=== PATIENT | female | born 1945 | race African-American/Black ===

== ENCOUNTER → 2016-09-17 | Outpatient (CLI) | payer MEDICARE, MEDICAID ==
--- NOTE | 2016-09-17 17:45 | REP ---
Pelvic sonography: History: Question left ovarian cyst. The patient status-post hysterectomy and right and left oophorectomy. Comparison sonography: 10/03/2014 from [facility] showed a 4 cm cystic structure lateral to the bladder in the left pelvis. Findings: Transabdominal and transvaginal scanning are performed. There is a cystic structure in the left adnexa again seen measuring 4.0 x 4.8 x 3.9 cm. Lateral to this is a complex area measuring 3.6 x 3.0 x 1.6 cm. There are small follicle type cystic areas within this complex area. The 4.8 cm area appears sonographically to be a simple cystic structure. CT study of the abdomen and pelvis from 10/16/2014 showed similar findings. Impression: 4.8 cm simple cyst and 3.6 cm complex area suggesting residual or recurrent ovary in the left adnexa. No significant change a change from 10/16/2014 CT findings Signed by Narendra Thompson MD 09/18/2016 08:04 A
== END | disposition home or self-care (01) ==
LOC: M LRY 13:38
PROVIDERS: ATTEND Physician Assistant
DX: N83.202 Unspecified ovarian cyst, left side (principal); Z90.710 Acquired absence of both cervix and uterus

== ENCOUNTER → 2017-02-02 | Outpatient (CLI) | payer MEDICARE, MEDICAID ==
[~2017-02-02] VITALS: Ht 160 cm; Wt 106.1 kg
[~2017-02-02] MED LIST: ALLO100T PO; AMLO2.5T PO; BENZ100C5 PO; CETI10TA PO; EZET10TA PO; FLUT1LOT; FURO20TA2 PO; IPRASOL4 INH; LIDOCAINE 2% INJ 100 MG/5 ML SDV (FOR ANES.) As Ordered ONE; LIPI80TA PO; MONT10TA2 PO; NS 500 ML IV SCH; PATA0.2S OU; PHENYLephrine HCL 500 MCG/5 ML (100MCG/ML) SYRINGE (J2370) As Ordered ONE; POLYPOW9 PO; POTA10TA16 PO; PROPOFOL 500 MG/50 ML VIAL As Ordered ONE; SYMB16INH INH
--- NOTE | 2017-02-02 07:46 | ROOR ---
Patient Name: Peace Garrison Procedure Date: 02/02/2017 7:31 AM Date of : 1945 Age: 71 Room: [facility] Gender: Female Note Status: Finalized Procedure: Upper GI endoscopy Indications: Surveillance procedure, Heartburn Providers: Kamaljit YOUSSEF MD Referring MD: KINGSTON Pike Requesting Provider: Medicines: Monitored Anesthesia Care Complications: No immediate complications. Procedure: Pre-Anesthesia Assessment: - The heart rate, respiratory rate, oxygen saturations, blood pressure, adequacy of pulmonary ventilation, and response to care were monitored throughout the procedure. The Endoscope was introduced through the mouth, and advanced to the second part of duodenum. The upper GI endoscopy was accomplished without difficulty. The patient tolerated the procedure well. Findings: The examined esophagus was normal. A single small submucosal papule (nodule) was found in the gastric body. Biopsies were taken with a cold forceps for histology. The exam was otherwise without abnormality. The examined duodenum was normal. Impression: - Normal esophagus. - A single umbillicated submucosal papule (nodule) found in the stomach (unchanged from previous exam in 2014). Biopsied. - The examination was otherwise normal. - Normal examined duodenum. Recommendation: - Observe patient's clinical course. - Await pathology results. Kamaljit Youssef MD Kamaljit YOUSSEF MD 02/02/2017 7:46:39 AM This report has been signed electronically. Number of Addenda: 0 Note Initiated On: 02/02/2017 7:31 AM Estimated Blood Loss: Estimated blood loss: none.
--- NOTE | 2017-02-02 07:58 | ROOR ---
Patient Name: Peace Garrison Procedure Date: 02/02/2017 7:31 AM Date of : 1945 Age: 71 Room: [facility] Gender: Female Note Status: Finalized Procedure: Colonoscopy Indications: High risk colon cancer surveillance: Personal history of colonic polyps, Last colonoscopy: January 2015 Providers: Kamaljit YOUSSEF MD Referring MD: KINGSTON Pike Requesting Provider: Medicines: Monitored Anesthesia Care Complications: No immediate complications. Procedure: Pre-Anesthesia Assessment: - The heart rate, respiratory rate, oxygen saturations, blood pressure, adequacy of pulmonary ventilation, and response to care were monitored throughout the procedure. The Colonoscope was introduced through the anus and advanced to the cecum, identified by appendiceal orifice and ileocecal valve. The colonoscopy was performed without difficulty. The patient tolerated the procedure well. The quality of the bowel preparation was good. Findings: The perianal and digital rectal examinations were normal. A 4 mm polyp was found in the ascending colon. The polyp was sessile. The polyp was removed with a cold snare. Resection and retrieval were complete. Internal hemorrhoids were found during retroflexion. The hemorrhoids were moderate. The exam was otherwise without abnormality on direct and retroflexion views. Impression: - One 4 mm polyp in the ascending colon, removed with a cold snare. Resected and retrieved. - Internal hemorrhoids. - The examination was otherwise normal on direct and retroflexion views. Recommendation: - Repeat colonoscopy in 5 years for surveillance. Kamaljit Youssef MD Kamaljit YOUSSEF MD 02/02/2017 7:58:18 AM This report has been signed electronically. Number of Addenda: 0 Note Initiated On: 02/02/2017 7:31 AM Estimated Blood Loss: Estimated blood loss: none.
[2017-02-02 08:20] VITALS: BP 131/82
== END | disposition home or self-care (01) ==
LOC: M OPP 06:21
PROVIDERS: ATTEND Internal Medicine Gastroenterology
DX: Z12.11 Encounter for screening for malignant neoplasm of colon (principal); D12.2 Benign neoplasm of ascending colon; K64.8 Other hemorrhoids; Z86.010 Personal history of colon polyps; R12 Heartburn; K31.89 Other diseases of stomach and duodenum; I10 Essential (primary) hypertension; E78.5 Hyperlipidemia, unspecified; M10.9 Gout, unspecified; R07.89 Other chest pain; R06.02 Shortness of breath; M19.90 Unspecified osteoarthritis, unspecified site; J45.909 Unspecified asthma, uncomplicated; Z78.0 Asymptomatic menopausal state; J44.9 Chronic obstructive pulmonary disease, unspecified; G47.8 Other sleep disorders; G47.30 Sleep apnea, unspecified; R06.83 Snoring; Z88.0 Allergy status to penicillin; Z88.8 Allergy status to other drugs, medicaments and biological substances; Z79.899 Other long term (current) drug therapy
CPT/HCPCS: 43239; 45385; 88305; J2370

== ENCOUNTER → 2017-02-25 | Outpatient (CLI) | payer MEDICARE, MEDICAID ==
[~2017-02-25] MED LIST changes: -LIDOCAINE 2% INJ 100 MG/5 ML SDV (FOR ANES.) As Ordered ONE; -NS 500 ML IV SCH; -PHENYLephrine HCL 500 MCG/5 ML (100MCG/ML) SYRINGE (J2370) As Ordered ONE; -PROPOFOL 500 MG/50 ML VIAL As Ordered ONE
--- NOTE | 2017-02-25 13:15 | REP ---
PA and lateral chest: Comparisons are the PA and lateral plain film studies dated 01/07/2069, 12/11/2014. There is also a comparison chest CT dated 07/26/2016. There is chronic interstitial coarsening bilaterally, unchanged from all prior studies, compatible with fibrosis and chronic lung disease. There is cardiomegaly, unchanged. There are no acute infiltrates or effusions. No masses. The joselito, mediastinum, and bony thorax are unchanged. Impression: Chronic interstitial coarsening and chronic cardiomegaly. No new or acute cardiopulmonary findings. Signed by Tony aCrmichael MD 02/25/2017 01:06 P
== END ==
LOC: M LRY 09:34
PROVIDERS: ATTEND Physician Assistant
DX: R91.8 Other nonspecific abnormal finding of lung field (principal); I51.7 Cardiomegaly

== ENCOUNTER → 2017-02-25 | Outpatient (REF) | payer MEDICARE, MEDICAID ==
[2017-02-25 13:25] LABS: MEAN CORPUSCULAR HEMOGLOBIN 29.6 pg (27.0-33.0); MEAN CORPUSCULAR HGB CONC 31.3 g/dl (32.0-36.5); MEAN CORPUSCULAR VOLUME 94.4 fl (80.0-96.0); RED CELL DISTRIBUTION WIDTH 14.8 % (11.5-14.5); WHITE BLOOD COUNT 9.3 K/mm3 (4.0-10.0)
[2017-02-25 14:22] LABS: ALBUMIN 3.8 GM/DL (3.2-5.2); ALKALINE PHOSPHATASE 93 U/L (45-117); ALT/SGPT 27 U/L (12-78); ANION GAP 8 MEQ/L (8-16); AST/SGOT 29 U/L (15-37); BILIRUBIN,TOTAL 0.3 MG/DL (0.2-1.0); BLOOD UREA NITROGEN 21 MG/DL (7-18); CALCIUM LEVEL 9.3 MG/DL (8.8-10.2); CARBON DIOXIDE LEVEL 28 MEQ/L (21-32); CHLORIDE LEVEL 106 MEQ/L (98-107); CHOLESTEROL LEVEL 228 MG/DL (<200); CREATININE FOR GFR 0.85 MG/DL (0.55-1.02); FERRITIN 401 NG/ML (8-252); GLOMERULAR FILTRATION RATE > 60.0 (>39); GLUCOSE, FASTING 101 MG/DL (83-110); POTASSIUM SERUM 4.2 MEQ/L (3.5-5.1); SODIUM LEVEL 142 MEQ/L (136-145); TRIGLYCERIDES LEVEL 58 MG/DL (<150); URIC ACID 4.3 MG/DL (2.6-6.0)
== END ==
LOC: M SFHCLERA 09:48
PROVIDERS: ATTEND Physician Assistant
DX: I10 Essential (primary) hypertension (principal); E78.2 Mixed hyperlipidemia; D64.9 Anemia, unspecified; R06.09 Other forms of dyspnea; E79.0 Hyperuricemia without signs of inflammatory arthritis and tophaceous disease

== ENCOUNTER → 2017-08-11 | Outpatient (REF) | payer MEDICARE, MEDICAID ==
[2017-08-11 12:18] LABS: ALBUMIN 3.8 GM/DL (3.2-5.2); ALBUMIN/GLOBULIN RATIO 0.95 (1.00-1.93); ALKALINE PHOSPHATASE 87 U/L (45-117); ALT/SGPT 28 U/L (12-78); ANION GAP 8 MEQ/L (8-16); AST/SGOT 34 U/L (7-37); BILIRUBIN,TOTAL 0.5 MG/DL (0.2-1.0); BLOOD UREA NITROGEN 13 MG/DL (7-18); CALCIUM LEVEL 9.7 MG/DL (8.8-10.2); CARBON DIOXIDE LEVEL 29 MEQ/L (21-32); CHLORIDE LEVEL 107 MEQ/L (98-107); CHOLESTEROL LEVEL 212 MG/DL (<200); CREATININE FOR GFR 0.72 MG/DL (0.55-1.02); GLOMERULAR FILTRATION RATE > 60.0 (>39); GLUCOSE, FASTING 86 MG/DL (83-110); POTASSIUM SERUM 4.2 MEQ/L (3.5-5.1); SODIUM LEVEL 144 MEQ/L (136-145); TOTAL PROTEIN 7.8 GM/DL (6.4-8.2); TRIGLYCERIDES LEVEL 53 MG/DL (<150); URIC ACID 3.8 MG/DL (2.6-6.0)
== END ==
LOC: M SFHCLERA 09:31
PROVIDERS: ATTEND Physician Assistant
DX: I10 Essential (primary) hypertension (principal); E78.2 Mixed hyperlipidemia; E79.0 Hyperuricemia without signs of inflammatory arthritis and tophaceous disease

== ENCOUNTER → 2017-08-11 | Outpatient (CLI) | payer MEDICARE, MEDICAID | LOC: M LRY 09:17 | PROVIDERS: ATTEND Physician Assistant | DX: I10 Essential (primary) hypertension (principal); E78.2 Mixed hyperlipidemia; E79.0 Hyperuricemia without signs of inflammatory arthritis and tophaceous disease ==

== ENCOUNTER → 2017-09-01 | Outpatient (REF) | payer MEDICARE, MEDICAID | LOC: M SFHCLERA 10:31 | PROVIDERS: ATTEND Family Medicine | DX: I10 Essential (primary) hypertension (principal); E66.01 Morbid (severe) obesity due to excess calories; Z68.42 Body mass index [BMI] 45.0-49.9, adult; R73.09 Other abnormal glucose ==

== ENCOUNTER → 2017-11-26 | Outpatient (REF) | payer MEDICARE | LOC: M LAB REF 13:18 | DX: J47.9 Bronchiectasis, uncomplicated (principal) | CPT/HCPCS: 87205 ==

== ENCOUNTER → 2018-02-09 | Outpatient (REF) | payer MEDICARE ==
[2018-02-09 11:16] LABS: HEMOGLOBIN 12.1 g/dl (12.0-15.5); MEAN CORPUSCULAR HEMOGLOBIN 28.9 pg (27.0-33.0); MEAN CORPUSCULAR HGB CONC 31.8 g/dl (32.0-36.5); MEAN CORPUSCULAR VOLUME 90.9 fl (80.0-96.0); PLATELET COUNT, AUTOMATED 188 10^3/uL (150-450); RED BLOOD COUNT 4.18 10^6/uL (4.00-5.40); RED CELL DISTRIBUTION WIDTH 15.2 % (11.5-14.5); WHITE BLOOD COUNT 6.6 10^3/uL (4.0-10.0)
[2018-02-09 11:32] LABS: ALBUMIN 3.7 GM/DL (3.2-5.2); ALKALINE PHOSPHATASE 91 U/L (45-117); ALT/SGPT 37 U/L (12-78); ANION GAP 7 MEQ/L (8-16); AST/SGOT 45 U/L (7-37); BILIRUBIN,TOTAL 0.4 MG/DL (0.2-1.0); BLOOD UREA NITROGEN 16 MG/DL (7-18); CALCIUM LEVEL 9.3 MG/DL (8.8-10.2); CARBON DIOXIDE LEVEL 29 MEQ/L (21-32); CHLORIDE LEVEL 107 MEQ/L (98-107); CHOLESTEROL LEVEL 200 MG/DL (<200); CHOLESTEROL RISK RATIO 2.666 (<5); CREATININE FOR GFR 0.71 MG/DL (0.55-1.30); GLOMERULAR FILTRATION RATE > 60.0 (>39); GLUCOSE, FASTING 87 MG/DL (70-100); HDL CHOLESTEROL 75 MG/DL (>40); NON-HDL-C 125 MG/DL; POTASSIUM SERUM 3.8 MEQ/L (3.5-5.1); SODIUM LEVEL 143 MEQ/L (136-145); TOTAL PROTEIN 7.8 GM/DL (6.4-8.2); TRIGLYCERIDES LEVEL 55 MG/DL (<150); URIC ACID 2.9 MG/DL (2.6-6.0)
[2018-02-09 11:37] LABS: ESTIMATED AVERAGE GLUCOSE 114 MG/DL (60-110); HEMOGLOBIN A1c 5.6 %
== END ==
LOC: M SFHCLERA 09:35
DX: I10 Essential (primary) hypertension (principal); E78.2 Mixed hyperlipidemia; E79.0 Hyperuricemia without signs of inflammatory arthritis and tophaceous disease; R73.01 Impaired fasting glucose
CPT/HCPCS: 84550

== ENCOUNTER → 2018-04-06 | Outpatient (REF) | payer MEDICARE ==
[2018-04-06 13:31] LABS: D-DIMER QUANT 1170.6 ng/ml (<500)
== END ==
LOC: M LAB REF 13:00
DX: R09.02 Hypoxemia (principal)
CPT/HCPCS: 85379

== ENCOUNTER → 2018-06-20 | Outpatient (REF) | payer MEDICARE ==
[2018-06-20 13:19] LABS: BASO % 0.5 % (0.0-1.0); EOS # 0.5 10^3/uL (0.0-0.50); EOS % 8.1 % (0.0-3.0); HEMATOCRIT 35.9 % (36.0-47.0); HEMOGLOBIN 11.3 g/dl (12.0-15.5); IMMATURE GRANULOCYTE % 0.2 % (0-3.0); LYMPH # 1.6 10^3/uL (1.5-4.5); LYMPH % 26.4 % (24.0-44.0); MEAN CORPUSCULAR HEMOGLOBIN 28.7 pg (27.0-33.0); MEAN CORPUSCULAR HGB CONC 31.5 g/dl (32.0-36.5); MEAN CORPUSCULAR VOLUME 91.1 fl (80.0-96.0); MONO # 0.5 10^3/uL (0.0-0.8); MONO % 8.7 % (0.0-5.0); NEUTROPHILS # 3.4 10^3/uL (1.8-7.7); NEUTROPHILS % 56.1 % (36.0-66.0); PLATELET COUNT, AUTOMATED 197 10^3/uL (150-450); RED BLOOD COUNT 3.94 10^6/uL (4.00-5.40); RED CELL DISTRIBUTION WIDTH 16.2 % (11.5-14.5); WHITE BLOOD COUNT 6.1 10^3/uL (4.0-10.0)
[2018-06-20 13:47] LABS: CREATININE, URINE 93.1 MG/DL; MALB URINE SIEMENS 41.8 MG/L
[2018-06-20 13:50] LABS: MAU/CREAT RATIO 44.9 MCG/MG (0.0-30.0)
[2018-06-20 13:51] LABS: ESTIMATED AVERAGE GLUCOSE 114 MG/DL (60-110); HEMOGLOBIN A1c 5.6 %
[2018-06-20 14:01] LABS: ALBUMIN 3.4 GM/DL (3.2-5.2); ALBUMIN/GLOBULIN RATIO 0.87 (1.00-1.93); ALKALINE PHOSPHATASE 76 U/L (45-117); ALT/SGPT 33 U/L (12-78); ANION GAP 11 MEQ/L (8-16); AST/SGOT 42 U/L (7-37); BILIRUBIN,TOTAL 0.5 MG/DL (0.2-1.0); BLOOD UREA NITROGEN 18 MG/DL (7-18); CARBON DIOXIDE LEVEL 28 MEQ/L (21-32); CHLORIDE LEVEL 106 MEQ/L (98-107); CHOLESTEROL LEVEL 178 MG/DL (<200); CHOLESTEROL RISK RATIO 2.918 (<5); CPK CREATINE PHOSPHOKINASE 575 U/L (26-192); CREATININE FOR GFR 0.77 MG/DL (0.55-1.30); GLOMERULAR FILTRATION RATE > 60.0 (>39); GLUCOSE, FASTING 79 MG/DL (70-100); HDL CHOLESTEROL 61 MG/DL (>40); LDL CHOLESTEROL 106 MG/DL (<100); MAGNESIUM LEVEL 2.2 MG/DL (1.8-2.4); MB/CK RELATIVE INDEX 0.99 (< OR =4); NON-HDL-C 117 MG/DL; POTASSIUM SERUM 3.4 MEQ/L (3.5-5.1); SODIUM LEVEL 145 MEQ/L (136-145); TOTAL PROTEIN 7.3 GM/DL (6.4-8.2); TRIGLYCERIDES LEVEL 53 MG/DL (<150)
[2018-06-22 15:03] LABS: INSULIN LEVEL 9.9 uIU/mL (2.6-24.9)
== END ==
LOC: M SFHCPLAZ 08:05
DX: I10 Essential (primary) hypertension (principal); E78.2 Mixed hyperlipidemia; R73.01 Impaired fasting glucose
CPT/HCPCS: 83525

== ENCOUNTER → 2018-06-28 | Outpatient (REF) | payer MEDICARE ==
[2018-06-28 19:30] LABS: CPK CREATINE PHOSPHOKINASE 504 U/L (26-192); MB/CK RELATIVE INDEX 1.05 (< OR =4)
== END ==
LOC: M SFHCPLAZ 09:28
DX: E78.2 Mixed hyperlipidemia (principal); Z23 Encounter for immunization
CPT/HCPCS: 82553

== ENCOUNTER → 2018-09-16 | Outpatient (CLI) | payer MEDICARE ==
[~2018-09-16] MED LIST changes: -AMLO2.5T PO; +AMLO2.5T3 PO; +BENZ-18 PO; -BENZ100C5 PO; +IPRA0.00 INH; -IPRASOL4 INH
--- NOTE | 2018-09-16 13:44 | REP ---
CHEST X-RAY: Two views. HISTORY: Cough for 1 month. Evaluate for pneumonia. COMPARISON STUDY: February 25, 2017 and January 08, 2016. FINDINGS: A chronic interstitial fibrosis pattern is again seen rather advanced. This generally a little more prominent in the right lung than the left and this pattern is unchanged. There is no evidence of superimposed infiltrate. The aorta is calcific and tortuous. Heart size is near the upper range of normal. No pleural effusion is seen. IMPRESSION: Marked diffuse interstitial fibrosis pattern again noted. No superimposed infiltrate seen. Electronically Signed by Narendra Thompson MD 09/16/2018 03:15 P
== END ==
LOC: M LRY 12:32
PROVIDERS: ATTEND Nurse Practitioner Family
DX: J98.8 Other specified respiratory disorders (principal); R05 Cough
CPT/HCPCS: 71046; 94640; G0463

== ENCOUNTER → 2018-10-31 | Outpatient (REF) | payer MEDICARE ==
[2018-10-31 10:54] LABS: BASO % 0.6 % (0.0-1.0); EOS # 0.4 10^3/uL (0.0-0.50); EOS % 6.6 % (0.0-3.0); HEMATOCRIT 37.6 % (36.0-47.0); LYMPH # 1.6 10^3/uL (1.5-4.5); LYMPH % 25.2 % (24.0-44.0); MEAN CORPUSCULAR HEMOGLOBIN 29.4 pg (27.0-33.0); MEAN CORPUSCULAR HGB CONC 31.9 g/dl (32.0-36.5); MEAN CORPUSCULAR VOLUME 92.2 fl (80.0-96.0); MONO # 0.7 10^3/uL (0.0-0.8); MONO % 11.4 % (0.0-5.0); NEUTROPHILS # 3.5 10^3/uL (1.8-7.7); PLATELET COUNT, AUTOMATED 191 10^3/uL (150-450); RED BLOOD COUNT 4.08 10^6/uL (4.00-5.40); WHITE BLOOD COUNT 6.2 10^3/uL (4.0-10.0)
[2018-10-31 11:08] LABS: ALBUMIN 3.5 GM/DL (3.2-5.2); ALT/SGPT 31 U/L (12-78); BILIRUBIN,TOTAL 0.4 MG/DL (0.2-1.0); BLOOD UREA NITROGEN 24 MG/DL (7-18); CALCIUM LEVEL 9.2 MG/DL (8.8-10.2); CARBON DIOXIDE LEVEL 30 MEQ/L (21-32); CHLORIDE LEVEL 106 MEQ/L (98-107); CHOLESTEROL LEVEL 238 MG/DL (<200); CPK CREATINE PHOSPHOKINASE 405 U/L (26-192); CREATININE FOR GFR 0.79 MG/DL (0.55-1.30); GLOMERULAR FILTRATION RATE > 60.0 (>39); GLUCOSE, FASTING 82 MG/DL (70-100); HDL CHOLESTEROL 77 MG/DL (>40); LDL CHOLESTEROL 154 MG/DL (<100); MAGNESIUM LEVEL 2.2 MG/DL (1.8-2.4); MB/CK RELATIVE INDEX 0.99 (< OR =4); NON-HDL-C 161 MG/DL; POTASSIUM SERUM 3.6 MEQ/L (3.5-5.1); SODIUM LEVEL 143 MEQ/L (136-145); TOTAL PROTEIN 7.3 GM/DL (6.4-8.2); TRIGLYCERIDES LEVEL 35 MG/DL (<150)
[2018-10-31 11:16] LABS: HEMOGLOBIN A1c 5.5 %
[2018-10-31 11:42] LABS: TOTAL 25(OH) VITAMIN D 31.6 NG/ML (30.0-100.0)
[2018-10-31 11:43] LABS: PTH INTACT 105.7 PG/ML (18.5-88.0)
== END ==
LOC: M SFHCPLAZ 07:49
PROVIDERS: ATTEND Nurse Practitioner Family
DX: I10 Essential (primary) hypertension (principal); E78.2 Mixed hyperlipidemia; R73.01 Impaired fasting glucose; E55.9 Vitamin D deficiency, unspecified; M10.9 Gout, unspecified

== ENCOUNTER → 2020-01-04 | Outpatient (REF) | payer MEDICARE ==
[~2020-01-04] MED LIST changes: -EZET10TA PO; +EZET10TA21 PO; -MONT10TA2 PO; +MONT10TA4 PO; +OLOP2.5D3 OU; -PATA0.2S OU
[2020-01-04 18:01] LABS: MEAN CORPUSCULAR HGB CONC 31.1 g/dl (32.0-36.5); MEAN CORPUSCULAR VOLUME 93.4 fl (80.0-96.0); PLATELET COUNT, AUTOMATED 200 10^3/uL (150-450); RED BLOOD COUNT 4.82 10^6/uL (4.00-5.40); WHITE BLOOD COUNT 6.3 10^3/uL (4.0-10.0)
[2020-01-04 18:23] LABS: ALBUMIN 3.4 GM/DL (3.2-5.2); BILIRUBIN,DIRECT 0.1 MG/DL (0.0-0.2); BILIRUBIN,TOTAL 0.6 MG/DL (0.2-1.0); TOTAL PROTEIN 8.4 GM/DL (6.4-8.2)
== END ==
LOC: M LAB REF 16:57
PROVIDERS: ATTEND Internal Medicine Pulmonary Disease
DX: J84.112 Idiopathic pulmonary fibrosis (principal)

== ENCOUNTER → 2020-05-17 | Outpatient (CLI) | payer MEDICARE ==
[2020-05-17 13:57] LABS: BASO % 0.3 % (0.0-1.0); EOS # 0.5 10^3/uL (0.0-0.5); EOS % 6.9 % (0.0-3.0); HEMOGLOBIN 11.5 g/dl (12.0-15.5); LYMPH # 1.8 10^3/uL (1.5-5.0); LYMPH % 24.6 % (24.0-44.0); MEAN CORPUSCULAR HEMOGLOBIN 29.8 pg (27.0-33.0); MEAN CORPUSCULAR HGB CONC 30.3 g/dl (32.0-36.5); MEAN CORPUSCULAR VOLUME 98.4 fl (80.0-96.0); MONO # 0.8 10^3/uL (0.0-0.8); MONO % 10.9 % (0.0-5.0); NEUTROPHILS # 4.1 10^3/uL (1.5-8.5); PLATELET COUNT, AUTOMATED 163 10^3/uL (150-450); RED BLOOD COUNT 3.86 10^6/uL (4.00-5.40); WHITE BLOOD COUNT 7.1 10^3/uL (4.0-10.0)
[2020-05-17 14:14] LABS: APPEARANCE, URINE CLEAR (CLEAR); BACTERIA, URINE AUTO NEGATIVE (NEGATIVE); BILIRUBIN, URINE AUTO NEGATIVE (NEGATIVE); BLOOD, URINE BLOOD NEGATIVE (NEGATIVE); COLOR, URINE YELLOW (YELLOW); GLUCOSE, URINE (UA) AUTO NEGATIVE (NEGATIVE); KETONE, URINE AUTO NEGATIVE (NEGATIVE); LEUKOCYTE ESTERASE, URINE AUTO NEGATIVE (NEGATIVE); NITRITE, URINE AUTO NEGATIVE (NEGATIVE); PROTEIN, URINE AUTO 1+ mg/dL (NEGATIVE); RBC, URINE AUTO 1 /HPF (0-3); SPECIFIC GRAVITY URINE AUTO 1.013 (1.002-1.035); SQUAMOUS EPITHELIAL CELL UR AU 0 /HPF (0-6); UROBILINOGEN, URINE AUTO 0.2 mg/dL (0.0-2.0); WBC, URINE AUTO 0 /HPF (0-3)
[2020-05-17 14:29] LABS: ALBUMIN 3.2 GM/DL (3.2-5.2); ALT/SGPT 27 U/L (12-78); BILIRUBIN,TOTAL 0.3 MG/DL (0.2-1.0); BLOOD UREA NITROGEN 17 MG/DL (7-18); CALCIUM LEVEL 9.6 MG/DL (8.8-10.2); CARBON DIOXIDE LEVEL 32 MEQ/L (21-32); CHLORIDE LEVEL 106 MEQ/L (98-107); CHOLESTEROL LEVEL 259 MG/DL (<200); CHOLESTEROL RISK RATIO 2.846 (<5); CREATININE FOR GFR 0.68 MG/DL (0.55-1.30); FREE T4 0.95 NG/DL (0.76-1.46); GLOMERULAR FILTRATION RATE > 60.0 (>39); GLUCOSE, FASTING 84 MG/DL (70-100); HDL CHOLESTEROL 91 MG/DL (>40); LDL CHOLESTEROL 159 MG/DL (<100); NON-HDL-C 168 MG/DL; POTASSIUM SERUM 3.7 MEQ/L (3.5-5.1); PTH INTACT 87.5 PG/ML (18.5-88.0); SODIUM LEVEL 141 MEQ/L (136-145); TOTAL 25(OH) VITAMIN D 39.4 NG/ML (30.0-100.0); TOTAL PROTEIN 7.9 GM/DL (6.4-8.2); TRIGLYCERIDES LEVEL 45 MG/DL (<150)
[2020-05-17 16:14] LABS: CREATININE, URINE 49.5 MG/DL; MAU/CREAT RATIO 961.6 MCG/MG (0.0-30.0)
[2020-05-17 22:53] LABS: HEMOGLOBIN A1c 5.5 %
== END ==
LOC: M PLALAB 08:20
PROVIDERS: ATTEND Nurse Practitioner Family
DX: E78.2 Mixed hyperlipidemia (principal); I10 Essential (primary) hypertension; J45.40 Moderate persistent asthma, uncomplicated; M10.9 Gout, unspecified; R73.01 Impaired fasting glucose; J84.112 Idiopathic pulmonary fibrosis; E55.9 Vitamin D deficiency, unspecified

== ENCOUNTER → 2020-06-27 | Outpatient (REF) | payer MEDICARE ==
[2020-06-27 18:44] LABS: COMPLEMENT C3 137 MG/DL (90-180); COMPLEMENT C4 19 MG/DL (10-40); FERRITIN 349 NG/ML (8-252); IRON (FE) 60 UG/DL (50-170); PERCENT SATURATION 24.2 % (13.2-45.0); TOTAL IRON BINDING CAPACITY 248 UG/DL (250-450); TOTAL PROTEIN 7.5 GM/DL (6.4-8.2)
[2020-06-27 18:58] LABS: HEPATITIS B SURFACE ANTIBODY NEGATIVE (POSITIVE)
[2020-06-27 19:09] LABS: HEPATITIS B SURFACE ANTIGEN NEGATIVE (NEGATIVE)
[2020-06-27 19:37] LABS: HEPATITIS B CORE ANTIBODY IGM NEGATIVE (NEGATIVE); HEPATITIS C VIRUS ABY INDEX 0.1 INDEX (<0.8)
[2020-07-01 10:33] LABS: ALBUMIN % 46.2 % (55.8-66.1); ALPHA-1-GLOBULIN % 5.4 % (2.9-4.9); BETA-1-GLOBULINS % 6.3 % (4.7-7.2); BETA-2-GLOBULINS % 6.8 % (3.2-6.5); GAMMA GLOBULIN % 22.3 % (11.1-18.8)
[2020-07-01 10:34] LABS: ALBUMIN 3.47 GM/DL (3.29-5.55); ALPHA-1-GLOBULINS 0.41 GM/DL (0.17-0.41); ALPHA-2-GLOBULINS 0.98 GM/DL (0.42-0.99); BETA-1-GLOBULINS 0.47 GM/DL (0.28-0.60); BETA-2-GLOBULINS 0.51 GM/DL (0.19-0.55); GAMMA GLOBULINS 1.67 GM/DL (0.65-1.58)
[2020-07-02 18:10] LABS: ANCA-ATYPICAL <1:20 titer (Neg:<1:20); ANTI DS-DNA AB Negative (Negative); ANTI-GLOMERULAR BASEMENT MEMB 4 units (0-20); ANTINUCLEAR ANTIBODIES DIRECT Negative (Negative); CYTOPLASMIC NEUTROP AB ANCA-C <1:20 titer (Neg:<1:20); FREE KAPPA LIGHT CHAINS SERUM 53.3 mg/L (3.3-19.4); FREE LAMBDA LIGHT CHAINS SERUM 26.2 mg/L (5.7-26.3); KAPPA/LAMBDA RATIO SERUM 2.03 (0.26-1.65); PERINUCLEAR AB ANCA-P <1:20 titer (Neg:<1:20)
== END ==
LOC: M LAB REF 17:00
PROVIDERS: ATTEND Internal Medicine Nephrology
DX: D50.9 Iron deficiency anemia, unspecified (principal); R80.9 Proteinuria, unspecified

== ENCOUNTER → 2020-12-11 | Outpatient (REF) | payer MEDICARE ==
[~2020-12-11] MED LIST changes: +MONT10TA10 PO; -MONT10TA4 PO
[2020-12-11 10:08] LABS: BASO % 0.3 % (0.0-1.0); EOS # 0.5 10^3/uL (0.0-0.5); EOS % 6.5 % (0.0-3.0); HEMATOCRIT 36.5 % (36.0-47.0); HEMOGLOBIN 10.9 g/dl (12.0-15.5); LYMPH # 1.8 10^3/uL (1.5-5.0); LYMPH % 24.1 % (24.0-44.0); MEAN CORPUSCULAR HEMOGLOBIN 30.5 pg (27.0-33.0); MEAN CORPUSCULAR HGB CONC 29.9 g/dl (32.0-36.5); MEAN CORPUSCULAR VOLUME 102.2 fl (80.0-96.0); MONO # 0.6 10^3/uL (0.0-0.8); MONO % 8.7 % (2.0-8.0); NEUTROPHILS # 4.4 10^3/uL (1.5-8.5); PLATELET COUNT, AUTOMATED 154 10^3/uL (150-450); RED BLOOD COUNT 3.57 10^6/uL (4.00-5.40); WHITE BLOOD COUNT 7.3 10^3/uL (4.0-10.0)
[2020-12-11 10:46] LABS: HEMOGLOBIN A1c 5.3 %
[2020-12-11 11:01] LABS: ALBUMIN 2.8 GM/DL (3.2-5.2); ALT/SGPT 75 U/L (12-78); BILIRUBIN,TOTAL 0.4 MG/DL (0.2-1.0); BLOOD UREA NITROGEN 9 MG/DL (7-18); CALCIUM LEVEL 9.6 MG/DL (8.8-10.2); CARBON DIOXIDE LEVEL 37 MEQ/L (21-32); CHLORIDE LEVEL 103 MEQ/L (98-107); CHOLESTEROL LEVEL 218 MG/DL (<200); CHOLESTEROL RISK RATIO 3.027 (<5); CREATININE FOR GFR 0.51 MG/DL (0.55-1.30); FREE T4 1.01 NG/DL (0.76-1.46); GLOMERULAR FILTRATION RATE > 60.0 (>39); GLUCOSE, FASTING 126 MG/DL (70-100); HDL CHOLESTEROL 72 MG/DL (>40); LDL CHOLESTEROL 135 MG/DL (<100); NON-HDL-C 146 MG/DL; POTASSIUM SERUM 3.5 MEQ/L (3.5-5.1); SODIUM LEVEL 142 MEQ/L (136-145); TOTAL PROTEIN 7.4 GM/DL (6.4-8.2); TRIGLYCERIDES LEVEL 54 MG/DL (<150); URIC ACID 2.9 MG/DL (2.6-6.0)
[2020-12-11 12:05] LABS: TOTAL 25(OH) VITAMIN D 37.7 NG/ML (30.0-100.0)
== END ==
LOC: M SFHCPLAZ 08:25
PROVIDERS: ATTEND Nurse Practitioner Family
DX: E78.2 Mixed hyperlipidemia (principal); I10 Essential (primary) hypertension; R73.01 Impaired fasting glucose; J84.112 Idiopathic pulmonary fibrosis; M10.9 Gout, unspecified; E55.9 Vitamin D deficiency, unspecified

== ENCOUNTER → 2020-12-27 | Outpatient (REF) | payer MEDICARE ==
[2020-12-27 18:19] LABS: FOLATE > 24.0 NG/ML; VITAMIN B12 LEVEL 1394 PG/ML
== END ==
LOC: M LAB REF 16:46
PROVIDERS: ATTEND Internal Medicine Nephrology
DX: R80.9 Proteinuria, unspecified (principal); D64.9 Anemia, unspecified

== ENCOUNTER → 2021-03-12 | Outpatient (REF) | payer MEDICARE ==
[2021-03-12 14:11] LABS: ALT/SGPT 149 U/L (12-78); BILIRUBIN,DIRECT 0.2 MG/DL (0.0-0.2); BILIRUBIN,TOTAL 0.5 MG/DL (0.2-1.0); BLOOD UREA NITROGEN 18 MG/DL (7-18); CALCIUM LEVEL 9.3 MG/DL (8.8-10.2); CARBON DIOXIDE LEVEL 33 MEQ/L (21-32); CHLORIDE LEVEL 102 MEQ/L (98-107); CREATININE FOR GFR 0.62 MG/DL (0.55-1.30); GLOMERULAR FILTRATION RATE > 60.0 (>39); GLUCOSE, FASTING 82 MG/DL (70-100); POTASSIUM SERUM 3.4 MEQ/L (3.5-5.1); SODIUM LEVEL 142 MEQ/L (136-145); TOTAL PROTEIN 7.9 GM/DL (6.4-8.2)
== END ==
LOC: M LAB REF 12:59
PROVIDERS: ATTEND Internal Medicine Pulmonary Disease
DX: J84.112 Idiopathic pulmonary fibrosis (principal)

== ENCOUNTER → 2021-06-09 | Outpatient (REF) | payer MEDICARE | LOC: M LAB REF 12:47 | PROVIDERS: ATTEND Internal Medicine Nephrology | DX: I12.9 Hypertensive chronic kidney disease with stage 1 through stage 4 chronic kidney disease, or unspecified chronic kidney disease (principal); R80.9 Proteinuria, unspecified; N18.9 Chronic kidney disease, unspecified ==

== ENCOUNTER → 2021-06-13 | Outpatient (CLI) | payer MEDICARE ==
[2021-06-13 15:49] LABS: CHOLESTEROL RISK RATIO 3.123 (<5)
== END ==
LOC: M PLALAB 10:09
PROVIDERS: ATTEND Nurse Practitioner Family
DX: E78.2 Mixed hyperlipidemia (principal)
CPT/HCPCS: 36415; 80061; G0463

== ENCOUNTER → 2021-07-03 | Outpatient (REF) | payer MEDICARE ==
[2021-07-03 18:44] LABS: ALBUMIN 2.8 GM/DL (3.2-5.2); ALT/SGPT 30 U/L (12-78); BILIRUBIN,DIRECT < 0.1 MG/DL (0.0-0.2); BILIRUBIN,TOTAL 0.3 MG/DL (0.2-1.0); TOTAL PROTEIN 7.5 GM/DL (6.4-8.2)
== END ==
LOC: M LAB REF 17:34
PROVIDERS: ATTEND Internal Medicine Pulmonary Disease
DX: J84.112 Idiopathic pulmonary fibrosis (principal)

== ENCOUNTER → 2021-11-27 | Outpatient (REF) | payer MEDICARE ==
[~2021-11-27] MED LIST changes: -MONT10TA10 PO; +MONT10TA97 PO; +POTA-149 PO; -POTA10TA16 PO
== END ==
LOC: M LAB REF 16:35
PROVIDERS: ATTEND Internal Medicine Pulmonary Disease
DX: J47.9 Bronchiectasis, uncomplicated (principal)

== ENCOUNTER → 2021-12-22 | Outpatient (CLI) | payer MEDICARE ==
[2021-12-22 13:31] LABS: BASO % 0.5 % (0.0-1.0); EOS # 0.5 10^3/uL (0.0-0.5); EOS % 6.4 % (0.0-3.0); HEMATOCRIT 33.9 % (36.0-47.0); HEMOGLOBIN 10.3 g/dl (12.0-15.5); LYMPH # 1.5 10^3/uL (1.5-5.0); LYMPH % 18.7 % (24.0-44.0); MEAN CORPUSCULAR HEMOGLOBIN 30.8 pg (27.0-33.0); MEAN CORPUSCULAR HGB CONC 30.4 g/dl (32.0-36.5); MEAN CORPUSCULAR VOLUME 101.5 fl (80.0-96.0); MONO # 0.6 10^3/uL (0.0-0.8); MONO % 7.5 % (2.0-8.0); NEUTROPHILS # 5.3 10^3/uL (1.5-8.5); NEUTROPHILS % 66.5 % (36.0-66.0); PLATELET COUNT, AUTOMATED 158 10^3/uL (150-450); RED BLOOD COUNT 3.34 10^6/uL (4.00-5.40); WHITE BLOOD COUNT 7.9 10^3/uL (4.0-10.0)
[2021-12-22 13:58] LABS: ALT/SGPT 17 U/L (12-78); BILIRUBIN,TOTAL 0.3 MG/DL (0.2-1.0); BLOOD UREA NITROGEN 15 MG/DL (7-18); CALCIUM LEVEL 9.5 MG/DL (8.8-10.2); CARBON DIOXIDE LEVEL 35 MEQ/L (21-32); CHLORIDE LEVEL 106 MEQ/L (98-107); CHOLESTEROL LEVEL 229 MG/DL (<200); CHOLESTEROL RISK RATIO 3.271 (<5); CREATININE FOR GFR 0.51 MG/DL (0.55-1.30); GLOMERULAR FILTRATION RATE > 60.0 (>39); GLUCOSE, FASTING 104 MG/DL (70-100); HDL CHOLESTEROL 70 MG/DL (>40); LDL CHOLESTEROL 146 MG/DL (<100); NON-HDL-C 159 MG/DL; POTASSIUM SERUM 3.6 MEQ/L (3.5-5.1); SODIUM LEVEL 143 MEQ/L (136-145); TOTAL PROTEIN 7.5 GM/DL (6.4-8.2); TRIGLYCERIDES LEVEL 65 MG/DL (<150); URIC ACID 2.6 MG/DL (2.6-6.0)
[2021-12-22 14:01] LABS: TOTAL 25(OH) VITAMIN D 46.9 NG/ML (30.0-100.0)
== END ==
LOC: M PLALAB 10:17
PROVIDERS: ATTEND Nurse Practitioner Family
DX: E78.2 Mixed hyperlipidemia (principal); I10 Essential (primary) hypertension; R73.01 Impaired fasting glucose; M10.9 Gout, unspecified; E55.9 Vitamin D deficiency, unspecified; R80.9 Proteinuria, unspecified

== ENCOUNTER → 2022-01-05 | Outpatient (CLI) | payer MEDICARE | LOC: M SOG 10:08 | PROVIDERS: ATTEND Physician Assistant | DX: M79.642 Pain in left hand (principal); M19.042 Primary osteoarthritis, left hand; M25.762 Osteophyte, left knee; M25.562 Pain in left knee ==

== ENCOUNTER 2022-02-05 12:40 | Observation (INO) | payer MEDICARE ==
[~2022-02-05] VITALS: Ht 160 cm; Wt 95.5 kg
[~2022-02-05 12:40] MED LIST changes: -AMLO1TAB25 PO; -ASPI81TA27 PO; -ATOR40TA75 PO; -AYRSPR NARES; -AZIT500T5 PO; -FERR325T81 PO; -LEVO750T13 PO; -LEVOTAB10 PO; -LOSA25TA13 PO; -MUCI600T31 PO; -OFEV1CAP PO
[2022-02-05 14:10] LABS: HEMATOCRIT 36.8 % (36.0-47.0); HEMOGLOBIN 11.1 g/dl (12.0-15.5); MEAN CORPUSCULAR HEMOGLOBIN 31.2 pg (27.0-33.0); MEAN CORPUSCULAR HGB CONC 30.2 g/dl (32.0-36.5); MEAN CORPUSCULAR VOLUME 103.4 fl (80.0-96.0); PLATELET COUNT, AUTOMATED 150 10^3/uL (150-450); RED BLOOD COUNT 3.56 10^6/uL (4.00-5.40); WHITE BLOOD COUNT 7.2 10^3/uL (4.0-10.0)
[2022-02-05 14:19] LABS: VENOUS BASE EXCESS 9.5 (-2.0-2.0); VENOUS HCO3 37.7 MEQ/L (23.0-27.0); VENOUS O2 SATURATION 95.6 % (60.0-80.0); VENOUS PARTIAL PRESSURE CO2 72.5 mmHg (38.0-50.0); VENOUS PARTIAL PRESSURE O2 78.6 mmHg (30.0-50.0); VENOUS PH 7.334 UNITS (7.330-7.430); VENOUS STANDARD HCO3 33.2 MEQ/L; VENOUS TOTAL CO2 39.9 MEQ/L (24.0-28.0)
[2022-02-05 14:29] LABS: BASOPHILS 1 % (0-1); EOSINOPHILS 4 % (0-3); LYMPHOCYTES 16 % (16-44); MONOCYTES 7 % (0-5); NEUTROPHILS 72 % (28-66)
[2022-02-05 14:30] LABS: PLATELET ESTIMATE NORMAL (NORMAL)
[2022-02-05 14:45] LABS: CK-MB VALUE MASS < 1.0 NG/ML (<3.6); CPK CREATINE PHOSPHOKINASE 199 U/L (26-192)
[2022-02-05 14:46] LABS: ALBUMIN 2.8 GM/DL (3.2-5.2); ALT/SGPT 23 U/L (12-78); BILIRUBIN,DIRECT < 0.1 MG/DL (0.0-0.2); BILIRUBIN,TOTAL 0.4 MG/DL (0.2-1.0); BLOOD UREA NITROGEN 9 MG/DL (7-18); CALCIUM LEVEL 8.9 MG/DL (8.8-10.2); CARBON DIOXIDE LEVEL 37 MEQ/L (21-32); CHLORIDE LEVEL 103 MEQ/L (98-107); CREATININE FOR GFR 0.53 MG/DL (0.55-1.30); GLOMERULAR FILTRATION RATE > 60.0 (>39); GLUCOSE, FASTING 127 MG/DL (70-100); NT-PRO BNP 130 PG/ML (<450); POTASSIUM SERUM 3.7 MEQ/L (3.5-5.1); SODIUM LEVEL 142 MEQ/L (136-145); TOTAL PROTEIN 7.8 GM/DL (6.4-8.2)
[2022-02-05] MEDS ORDERED: ALBUTEROL SULFATE 2.5 MG/0.5 ML INH NEB SOLN INH ONE (15:25)
[2022-02-05] MEDS ORDERED: IPRATROPIUM 0.02% SOLN 0.5MG 2.5ML NEB INH ONE (15:25)
[2022-02-05] MEDS ORDERED: ISOVUE-370 76% 100ML VIAL As Ordered ONE (15:27)
[2022-02-05 16:09] LABS: MB/CK RELATIVE INDEX 0.75 (< OR =4)
[2022-02-05] MEDS ORDERED: LevoFLOXacin IV 750 MG in IV 1 EA IV ONE (17:10)
[2022-02-05] MEDS ORDERED: OFEV1CAP PO (19:31)
[2022-02-05] MEDS ORDERED: FERR325T81 PO (19:31)
[2022-02-05] MEDS ORDERED: LEVOTAB10 PO (19:31)
[2022-02-05] MEDS ORDERED: ATOR40TA75 PO (19:31)
[2022-02-05] MEDS ORDERED: AZIT500T5 PO (19:31)
[2022-02-05] MEDS ORDERED: ASPI81TA27 PO (19:31)
[2022-02-05] MEDS ORDERED: AYRSPR NARES (19:31)
[2022-02-05] MEDS ORDERED: MUCI600T31 PO (19:31)
[2022-02-05] MEDS ORDERED: LOSA25TA13 PO (19:31)
[2022-02-05] MEDS ORDERED: AMLO1TAB25 PO (19:31)
[2022-02-05] MEDS ORDERED: HOME MED LIST COMPLETE! XX SCH (19:40)
[2022-02-05] MEDS: guaiFENesin ER 600 MG TAB PO SCH (21:00)
[2022-02-05] MEDS ORDERED: CETIRIZINE (ZyrTEC) 10 MG TAB PO SCH (21:00)
[2022-02-05] MEDS: BENZONATATE 100MG CAPSULE PO SCH (21:00)
[2022-02-05] MEDS: POTASSIUM CHLORIDE 10MEQ SR TABLET PO SCH (21:00)
[2022-02-05] MEDS: SODIUM CHLORIDE NASAL 0.65% SPRAY BTL (OCEAN) SCH (21:00)
[2022-02-05] MEDS ORDERED: ATORVASTATIN 20 MG TAB PO SCH (21:00)
[2022-02-05] MEDS ORDERED: MONTELUKAST 10 MG TAB PO SCH (21:00)
[2022-02-05] MEDS: IPRATROPIUM 0.5MG/ALBUTEROL 2.5MG INH SOL UD 3ML (DUONEB) INH PRN (22:53)
[2022-02-05] MEDS: SYMBICORT 160/4.5MCG INHALER 6GM INH SCH (22:54)
[2022-02-05 23:47] LABS: C REACTIVE PROTEIN QUANTITATIV 1.74 MG/DL (0.00-0.30)
[2022-02-06] VITALS (13 sets, daily range): BP systolic 123–163; BP diastolic 58–78; O2SAT 95–100
[2022-02-06 00:34] LABS: ERYTHROCYTE SEDIMENTATION RATE 79 mm/hr (0-30)
[2022-02-06] MEDS: SYMBICORT 160/4.5MCG INHALER 6GM INH SCH (07:21)
[2022-02-06] MEDS: IPRATROPIUM 0.5MG/ALBUTEROL 2.5MG INH SOL UD 3ML (DUONEB) INH PRN (07:24)
[2022-02-06 07:40] LABS: HEMOGLOBIN 10.8 g/dl (12.0-15.5); MEAN CORPUSCULAR HEMOGLOBIN 31.8 pg (27.0-33.0); MEAN CORPUSCULAR HGB CONC 30.9 g/dl (32.0-36.5); MEAN CORPUSCULAR VOLUME 102.9 fl (80.0-96.0); PLATELET COUNT, AUTOMATED 134 10^3/uL (150-450); WHITE BLOOD COUNT 7.3 10^3/uL (4.0-10.0)
[2022-02-06 07:54] LABS: BLOOD UREA NITROGEN 7 MG/DL (7-18); CALCIUM LEVEL 9.2 MG/DL (8.8-10.2); CARBON DIOXIDE LEVEL 39 MEQ/L (21-32); CHLORIDE LEVEL 103 MEQ/L (98-107); CREATININE FOR GFR 0.49 MG/DL (0.55-1.30); GLOMERULAR FILTRATION RATE > 60.0 (>39); GLUCOSE, FASTING 96 MG/DL (70-100); POTASSIUM SERUM 3.2 MEQ/L (3.5-5.1); SODIUM LEVEL 145 MEQ/L (136-145)
[2022-02-06] MEDS ORDERED: PANTOPRAZOLE 40MG VIAL IV SCH (09:00)
[2022-02-06] MEDS: SODIUM CHLORIDE NASAL 0.65% SPRAY BTL (OCEAN) SCH (09:00)
[2022-02-06] MEDS ORDERED: PREVNAR 13 VACCINE SYRINGE IM.IMMUN ONE (09:00)
[2022-02-06] MEDS ORDERED: AZITHROMYCIN 250MG TABLET PO SCH (09:00)
[2022-02-06] MEDS ORDERED: LOSARTAN 25 MG TAB PO SCH (09:00)
[2022-02-06] MEDS ORDERED: FERROUS SULFATE 325MG TAB PO SCH (09:00)
[2022-02-06] MEDS ORDERED: allopurinoL 100 MG TAB PO SCH (09:00)
[2022-02-06] MEDS ORDERED: ASPIRIN 81MG ENTERIC TABLET PO SCH (09:00)
[2022-02-06] MEDS: guaiFENesin ER 600 MG TAB PO SCH (09:04)
[2022-02-06] MEDS: POTASSIUM CHLORIDE 10MEQ SR TABLET PO SCH (09:05)
[2022-02-06] MEDS: BENZONATATE 100MG CAPSULE PO SCH ×2 (09:06→16:21)
[2022-02-06] MEDS ORDERED: POTASSIUM CHLORIDE 10MEQ SR TABLET PO ONE (10:05)
[2022-02-06] MEDS ORDERED: ONDANSETRON 4MG/2ML VIAL IV ONE (10:30)
[2022-02-06] MEDS ORDERED: LEVO750T13 PO (15:59)
[2022-02-06] MEDS ORDERED: LevoFLOXacin 750 MG TABLET PO SCH (17:00)
[2022-02-06] MEDS ORDERED: LevoFLOXacin IV 750 MG in IV 1 EA IV SCH (17:30)
[2022-02-06] MEDS ORDERED: OFEV 100 MG PO SCH (21:00)
[2022-02-06] MEDS ORDERED: AYR SCH (21:00)
[2022-02-07 17:08] LABS: MYCOPLASMA PNEUMONIAE IgG <100 U/mL (0-99); MYCOPLASMA PNEUMONIAE IgM <770 U/mL (0-769)
== END 2022-02-06 17:45 | disposition home or self-care (01) ==
LOC: M ED 12:40 → M ED INP 12:41 → M PCU 02-06 00:07
PROVIDERS: ADMIT Internal Medicine; ATTEND Internal Medicine
DX: J18.9 Pneumonia, unspecified organism (principal); J96.11 Chronic respiratory failure with hypoxia; J84.112 Idiopathic pulmonary fibrosis; Z23 Encounter for immunization; M10.9 Gout, unspecified; I10 Essential (primary) hypertension; Z99.81 Dependence on supplemental oxygen; J30.9 Allergic rhinitis, unspecified; G47.33 Obstructive sleep apnea (adult) (pediatric); K21.9 Gastro-esophageal reflux disease without esophagitis; R05.3 Chronic cough; Z79.82 Long term (current) use of aspirin; Z79.899 Other long term (current) drug therapy; Z88.0 Allergy status to penicillin
CPT/HCPCS: 36415; 71045; 71275; 80048; 80076; 82550; 82553; 82803; 83605; 83880; 84145; 84443; 84484; 85025; 85027; 85652; 86140; 86738; 87040; 87486; 87581; 87633; 87798; 90670; 93005; 93041; 94640; 94760; 96365; 96375; 97161; 97530; 99285; C9113; G0009; G0378; J1956; J2405; Q9967

== ENCOUNTER → 2022-02-05 | Outpatient (REF) | payer MEDICARE ==
[~2022-02-05] MED LIST changes: +AMLO1TAB25 PO; +ASPI81TA27 PO; +ATOR40TA75 PO; +AYRSPR NARES; +AZIT500T5 PO; +FERR325T81 PO; +LEVO750T13 PO; +LEVOTAB10 PO; +LOSA25TA13 PO; +MUCI600T31 PO; +OFEV1CAP PO
[2022-02-05 17:25] LABS: BACTERIA, URINE AUTO NEGATIVE (NEGATIVE); CALCIUM OXALATE CRYSTALS SMALL; MUCUS, URINE SMALL (NEGATIVE); RBC, URINE AUTO 1 /HPF (0-3); SQUAMOUS EPITHELIAL CELL UR AU 3 /HPF (0-6); WBC, URINE AUTO 1 /HPF (0-3)
[2022-02-05 17:36] LABS: TOTAL PROTEIN,RANDOM URINE 137.5 MG/DL (0.0-12.0)
== END ==
LOC: M LAB REF 16:41
PROVIDERS: ATTEND Nurse Practitioner Family
DX: R31.9 Hematuria, unspecified (principal); R80.9 Proteinuria, unspecified

== ENCOUNTER → 2022-03-18 | Outpatient (CLI) | payer MEDICARE ==
[~2022-03-18] MED LIST changes: +AMLO1TAB25 PO; +ASPI81TA27 PO; +ATOR40TA75 PO; +AYRSPR NARES; +AZIT500T5 PO; +FERR325T81 PO; +LEVO750T13 PO; +LEVOTAB10 PO; +LOSA25TA13 PO; +MUCI600T31 PO; +OFEV1CAP PO
[2022-03-18 18:01] LABS: BASO % 0.1 % (0.0-1.0); EOS # 0.1 10^3/uL (0.0-0.5); EOS % 1.1 % (0.0-3.0); HEMATOCRIT 36.9 % (36.0-47.0); HEMOGLOBIN 11.2 g/dl (12.0-15.5); LYMPH # 1.1 10^3/uL (1.5-5.0); LYMPH % 13.1 % (24.0-44.0); MEAN CORPUSCULAR HEMOGLOBIN 30.3 pg (27.0-33.0); MEAN CORPUSCULAR HGB CONC 30.4 g/dl (32.0-36.5); MEAN CORPUSCULAR VOLUME 99.7 fl (80.0-96.0); MONO # 0.4 10^3/uL (0.0-0.8); MONO % 4.3 % (2.0-8.0); NEUTROPHILS # 6.8 10^3/uL (1.5-8.5); PLATELET COUNT, AUTOMATED 171 10^3/uL (150-450); WHITE BLOOD COUNT 8.4 10^3/uL (4.0-10.0)
[2022-03-18 19:33] LABS: ALBUMIN 2.9 GM/DL (3.2-5.2); BLOOD UREA NITROGEN 24 MG/DL (7-18); CALCIUM LEVEL 9.5 MG/DL (8.8-10.2); CARBON DIOXIDE LEVEL 38 MEQ/L (21-32); CHLORIDE LEVEL 99 MEQ/L (98-107); CREATININE FOR GFR 0.72 MG/DL (0.55-1.30); GLOMERULAR FILTRATION RATE > 60.0 (>39); GLUCOSE, FASTING 118 MG/DL (70-100); NT-PRO BNP 27 PG/ML (<450); PHOSPHORUS LEVEL 2.8 MG/DL (2.5-4.9); SODIUM LEVEL 141 MEQ/L (136-145)
== END ==
LOC: M PLALAB 15:56
PROVIDERS: ATTEND Nurse Practitioner Family
DX: R09.02 Hypoxemia (principal); I10 Essential (primary) hypertension